=== PATIENT | female | born 1975 ===

== ENCOUNTER 2018-10-16 16:10 | Emergency (ER) | payer OTHER ==
--- NOTE | 2018-10-16 18:44 | ED PDOC ---
HPI: Back Time Seen by Provider: 10/16/18 18:09 Chief Complaint (Nursing): Back Pain Chief Complaint (Provider): Back Pain History Per: Patient History/Exam Limitations: no limitations Onset/Duration Of Symptoms: Days Current Symptoms Are (Timing): Still Present Additional Complaint(s): Patient is a 43 y/o female with a PMHx of anemia, diabetes, and sciatica who presents to the ED for evaluation of right, lower back ongoing since 10/05/2018. Patient reports that her right lower back pain had radiated her right neck and leg. Patient states yesterday she began having generalized body aches with mild headaches and chills. Patient has been taking Ibuprofen intermittently with some relief. Patient denies any sick contacts, recent trauma or falls, fever, night sweats, chest pain, palpitations, N/V/D, and nasal congestion. PCP: Dr. Travon Pacheco Past Medical History Vital Signs: Last Vital Signs Temp 99.6 F 10/16/18 16:39 Pulse 104 H 10/16/18 16:39 Resp 18 10/16/18 16:39 BP 139/94 H 10/16/18 16:39 Pulse Ox 100 10/16/18 16:39 - Medical History PMH: Anemia, Diabetes Denies: HTN, Hyperlipidemia Other PMH: sciatica - Surgical History Surgical History: No Surg Hx - Family History Family History: States: No Known Family Hx - Immunization History Hx Influenza Vaccination: No - Home Medications Home Medications: Ambulatory Orders Medication Instructions Recorded Cyclobenzaprine [Cyclobenzaprine 10 mg PO Q8 PRN 7 Days tab 10/16/18 HCl] Ibuprofen [Motrin Tab] 800 mg PO Q6 PRN 1 Days tab 10/16/18 - Allergies Allergies/Adverse Reactions: Allergies Allergy/AdvReac Type Severity Reaction Status Date / Time No Known Allergies Allergy Verified 10/16/18 16:40 Review of Systems ROS Statement: Except As Marked, All Systems Reviewed And Found Negative Constitutional: Positive for: Chills, Other (generalized body aches). Negative for: Fever, Sweats (night) ENT: Negative for: Nose Congestion Cardiovascular: Negative for: Chest Pain, Palpitations Gastrointestinal: Negative for: Nausea, Vomiting, Diarrhea Musculoskeletal: Positive for: Neck Pain (right sided), Back Pain (right lower), Leg Pain (right) Neurological: Positive for: Headache (mild) Physical Exam - Reviewed Nursing Documentation Reviewed: Yes Vital Signs Reviewed: Yes - Physical Exam Appears: Positive for: Well Head Exam: Positive for: ATRAUMATIC, NORMAL INSPECTION, NORMOCEPHALIC Eye Exam: Positive for: EOMI, Normal appearance, PERRL ENT: Positive for: Normal ENT Inspection Neck: Positive for: Normal, Painless ROM, Supple Cardiovascular/Chest: Positive for: Regular Rate, Rhythm Respiratory: Positive for: CNT, Normal Breath Sounds Pulses-Dorsalis Pedis (R): 2+ Back: Positive for: Normal Inspection, Other (Tenderness on Palpation of Lower Back and Right Buttock; Pain with flexion and extension of back, right hip, and knee). Negative for: Vertebral Tenderness, Decreased ROM Extremity: Positive for: Normal ROM ( and sensation to light touch equal on bilateral lower extremity) Neurologic/Psych: Positive for: Alert, Oriented - ECG O2 Sat by Pulse Oximetry: 100 (RA) Pulse Ox Interpretation: Normal Medical Decision Making Medical Decision Making: Time: 1839 Plan: Flexeril 10 mg PO Toradol 15 mg IM Influenza A B Urine Dip Urine Time: 2034 Patient reevaluated with neck and back pain much improved. Patient reports headache has also resolved. Vital signs are stable. Stable for discharge home. Scribe Attestation: Documented by Pepe Schafer, acting as a scribe for Sarah LEE. Provider Scribe Attestation: All medical record entries made by the Scribe were at my direction and personally dictated by me. I have reviewed the chart and agree that the record accurately reflects my personal performance of the history, physical exam, medical decision making, and the department course for this patient. I have also personally directed, reviewed, and agree with the discharge instructions and disposition. Disposition - Clinical Impression Clinical Impression: Back strain, Viral syndrome - Patient ED Disposition Is Patient to be Admitted: No Counseled Patient/Family Regarding: Studies Performed, Diagnosis, Need For Followup, Rx Given - Disposition Referrals: Travon Pacheco MD [Family Provider] - Disposition: Routine/Home Disposition Time: 20:38 Condition: STABLE Additional Instructions: F/u with your primary care doctor for further pain control. Use Tylenol or Ibuprofen for pain/body aches. Rest and stay hydrated. Take Flexeril as needed for back pain. Avoid driving or operating heavy machinery while on Flexeril as it may make you sleepy. Prescriptions: Cyclobenzaprine [Cyclobenzaprine HCl] 10 mg PO Q8 PRN 7 Days tab PRN Reason: Pain, Moderate (4-7) Ibuprofen [Motrin Tab] 800 mg PO Q6 PRN 1 Days tab PRN Reason: Pain, Moderate (4-7) Instructions: Low Back Pain (DC), Viral Syndrome (DC) Forms: [facility] [facility] (Barbadian) Print Language: DUTCH - POA Present On Arrival: None
[2018-10-16 20:17] VITALS: BP 136/76; PULSE 99; RESP 19; TEMP 99.1
[2018-10-16 20:40] VITALS: O2SAT 100
== END 2018-10-16 20:44 | disposition home or self-care (01) ==
LOC: H.ER 16:10
DX: M54.31 Sciatica, right side (principal); B34.9 Viral infection, unspecified; D64.9 Anemia, unspecified; E11.9 Type 2 diabetes mellitus without complications
CPT/HCPCS: 81025; 87804; 96372; 99284; J1885